=== PATIENT | female | born 1935 ===

== ENCOUNTER 2017-07-16 11:52 | Outpatient (CLI) | payer MEDICARE ==
[2017-07-16 12:17] LABS: BASOPHILS % 0.1 (0.0-1.5); EOSINOPHILS % 1.8 % (0.0-6.8); MEAN CORPUSCULAR HEMOGLOBIN 35.8 pg (28.0-34.0); MEAN CORPUSCULAR VOLUME 119.1 fl (80.0-100.0); MONOCYTES % 4.1 % (0.0-11.0); NEUTROPHILS # 5.8 # k/uL (1.4-7.7)
[2017-07-16 12:41] LABS: eGFR (African) > 60; eGFR (Non-African) > 60
[2017-07-16 12:47] LABS: ANISOCYTOSIS 2+ (NEGATIVE); HYPOCHROMASIA 1+ (NEGATIVE)
== END 2017-07-16 14:11 ==
LOC: LAB 11:52
PROVIDERS: ATTEND Physician Assistant
DX: Z00.00 Encounter for general adult medical examination without abnormal findings (principal); R60.9 Edema, unspecified
CPT/HCPCS: 36415; 80053; 85025